=== PATIENT | female | born 1965 | race Caucasian/White ===

== ENCOUNTER → 2020-07-01 | Outpatient (CLI) | payer OTHER ==
[~2020-07-01] MED LIST: DIAZ10 PO; NADO40; Norco 5-325 Ta1 EACH PO
[2020-07-03 14:09] LABS: HPV 16 Negative (Negative); HPV 18 Negative (Negative); HPV OTHER HR TYPES Negative (Negative)
== END ==
LOC: LAB SHORT 15:30 → LAB 15:30
PROVIDERS: Registered Nurse Community Health
DX: Z12.4 Encounter for screening for malignant neoplasm of cervix (principal)
CPT/HCPCS: 87624; G0123

== ENCOUNTER → 2021-05-07 | Outpatient (CLI) | payer MEDICARE, OTHER | END | disposition home or self-care (01) | LOC: LAB 12:00 → LAB SHORT 12:00 | DX: R30.9 Painful micturition, unspecified (principal) | CPT/HCPCS: 87086 ==

== ENCOUNTER 2022-04-13 12:02 | Emergency (ER) | payer MEDICARE, OTHER ==
[~2022-04-13] VITALS: Ht 162.6 cm; Wt 78.0 kg
[2022-04-13 13:02] LABS: BASOPHILS ABSOLUTE AUTO 0.04 K/mm3 (0.00-0.23); BASOPHILS PERCENT AUTO 1 % (0-2); EOSINOPHILS ABSOLUTE AUTO 0.08 K/mm3 (0.00-0.68); EOSINOPHILS PERCENT AUTO 2 % (0-6); Hematocrit 41.2 % (33.0-51.0); Hemoglobin 13.8 g/dL (11.5-16.0); IMMATURE GRAN ABSOLUTE AUTO 0.01 K/mm3 (0.00-0.10); IMMATURE GRAN PERCENT AUTO 0 % (0-1); LYMPHOCYTES ABSOLUTE AUTO 2.02 K/mm3 (0.84-5.20); LYMPHOCYTES PERCENT AUTO 44 % (21-46); MONOCYTES ABSOLUTE AUTO 0.32 K/mm3 (0.16-1.47); MONOCYTES PERCENT AUTO 7 % (4-13); Mean Corpuscular HGB 30.4 pg (26.0-34.0); Mean Corpuscular HGB Conc 33.5 g/dL (31.5-36.5); Mean Corpuscular Volume 91 fL (80-100); Mean Platelet Volume 9.9 fL (9.1-12.4); NEUTROPHILS ABSOLUTE AUTO 2.15 K/mm3 (1.96-9.15); NEUTROPHILS PERCENT AUTO 47 % (41-73); Platelet Count 257 K/mm3 (150-400); RDW Coefficient Variation 13.2 % (11.7-14.2); RDW Standard Deviation 43.7 fL (35.1-46.3); Red Blood Cell Count 4.54 M/mm3 (3.80-5.20); White Blood Cell Count 4.62 K/mm3 (4.00-11.30)
[2022-04-13 13:37] LABS: Albumin, Blood 3.8 g/dL (3.4-5.0); Bilirubin, Total 0.5 mg/dL (0.1-1.0); Bun/Creatinine Ratio 25.7 (12.0-20.0); Calcium, Blood 9.1 mg/dL (8.5-10.1); Creatinine, Blood 0.58 mg/dL (0.40-1.00); Globulin, Blood 3.8 g/dL (2.2-4.0); Potassium, Blood 3.7 mmol/L (3.5-5.5); Total Protein, Blood 7.6 g/dL (6.4-8.2)
[2022-04-13] MEDS ORDERED: SOTALOL8011 PO (16:11)
[2022-04-13] MEDS ORDERED: TOPI50 PO (16:11)
[2022-04-13] MEDS ORDERED: IMITREX100 MG PO (16:12)
[2022-04-13 17:31] LABS: Magnesium, Blood 2.1 mg/dL (1.6-2.4)
[2022-04-13 17:32] LABS: Thyroid Stimulating Hormone 0.864 uIU/mL (0.360-4.800)
== END 2022-04-13 19:54 | disposition home or self-care (01) ==
LOC: ER 12:02
PROVIDERS: Physician Assistant; Student in an Organized Health Care Education/Training Program
DX: M25.512 Pain in left shoulder (principal); R00.2 Palpitations; M62.838 Other muscle spasm; G80.9 Cerebral palsy, unspecified; Z79.899 Other long term (current) drug therapy
CPT/HCPCS: 36415; 71046; 71260; 80053; 83690; 83735; 84443; 84484; 85025; 85379; 93005; 93010; 99284-25; A9270; J1885; Q9967

== ENCOUNTER 2023-08-14 14:32 | Emergency (ER) | payer MEDICARE, OTHER ==
[~2023-08-14] VITALS: Ht 162.6 cm; Wt 79.4 kg
[~2023-08-14 14:32] MED LIST changes: +BACLOFEN10 M4 PO; +Cyclobenzaprine5 MG PO; +IMITREX100 MG PO; +MAGNESIUM OXID500 MG PO; +SOTALOL8011 PO; +TOPI50 PO
[2023-08-14 15:04] LABS: BASOPHILS ABSOLUTE AUTO 0.03 K/mm3 (0.00-0.23); BASOPHILS PERCENT AUTO 1 % (0-2); EOSINOPHILS ABSOLUTE AUTO 0.09 K/mm3 (0.00-0.68); EOSINOPHILS PERCENT AUTO 2 % (0-6); Hemoglobin 13.9 g/dL (11.5-16.0); IMMATURE GRAN ABSOLUTE AUTO 0.01 K/mm3 (0.00-0.10); IMMATURE GRAN PERCENT AUTO 0 % (0-1); LYMPHOCYTES PERCENT AUTO 41 % (21-46); MONOCYTES ABSOLUTE AUTO 0.32 K/mm3 (0.16-1.47); MONOCYTES PERCENT AUTO 7 % (4-13); Mean Corpuscular HGB 30.5 pg (26.0-34.0); Mean Corpuscular HGB Conc 33.9 g/dL (31.5-36.5); Mean Corpuscular Volume 90 fL (80-100); Mean Platelet Volume 9.9 fL (9.1-12.4); NEUTROPHILS ABSOLUTE AUTO 2.29 K/mm3 (1.96-9.15); NEUTROPHILS PERCENT AUTO 50 % (41-73); Platelet Count 248 K/mm3 (150-400); RDW Coefficient Variation 13.4 % (11.7-14.2); RDW Standard Deviation 44.6 fL (35.1-46.3); Red Blood Cell Count 4.55 M/mm3 (3.80-5.20); White Blood Cell Count 4.64 K/mm3 (4.00-11.30)
[2023-08-14 15:27] LABS: Albumin, Blood 3.9 g/dL (3.4-5.0); Bilirubin, Total 0.6 mg/dL (0.1-1.0); Bun/Creatinine Ratio 22.1 (12.0-20.0); Calcium, Blood 9.1 mg/dL (8.5-10.1); Creatinine, Blood 0.73 mg/dL (0.40-1.00); Potassium, Blood 3.8 mmol/L (3.5-5.5); Total Protein, Blood 7.9 g/dL (6.4-8.2)
[2023-08-14] MEDS ORDERED: Aspirin EC81 MG PO (16:33)
[2023-08-14] MEDS ORDERED: Aspirin 81 MG Chew PO ONE (16:35)
[2023-08-14 16:56] VITALS: BP 142/80
== END 2023-08-14 16:57 | disposition home or self-care (01) ==
LOC: ER 14:32
PROVIDERS: Nurse Practitioner
DX: R20.2 Paresthesia of skin (principal); H53.8 Other visual disturbances; Z79.899 Other long term (current) drug therapy; Z79.82 Long term (current) use of aspirin
CPT/HCPCS: 70450; 80053; 85025; 99284-25; A9270